=== PATIENT | male | born 1940 | race Caucasian/White ===

== ENCOUNTER 2021-06-21 13:31 | Inpatient (IN) ==
[~2021-06-21 13:31] MED LIST: Buffered Lidocaine 1% SYRIN 1 ml INTRADERM ONE; Lactated Ringers 1000 ml BAG 1,000 ML IV SCH
[2021-06-21] MEDS ORDERED: ceFAZolin 2 GM in NS PREMIX 2 GM/100 ML BAG IVPB ONE (13:39)
[2021-06-21] MEDS ORDERED: Lidocaine 1% MPF 5 ML VIAL ONE (14:00)
[2021-06-21] MEDS ORDERED: Midazolam 5 mg/5 ml VIAL 1 mg/ml 5 ml VIAL (5 mg) ONE (14:02)
[2021-06-21] MEDS ORDERED: ROPIVACAINE 5 MG/ML 30 ML BTL (0.5%) ONE (14:03)
[2021-06-21] MEDS ORDERED: Bupivacaine 0.5% SDV PF 30ML VIAL ONE (14:04)
[2021-06-21] MEDS ORDERED: Propofol 10 MG/ML 20 ML BTL ONE (14:08)
[2021-06-21] MEDS ORDERED: Dexamethasone IV 4 MG/ML VIAL 1 ml VIAL ONE (14:08)
[2021-06-21] MEDS ORDERED: fentaNYL 100 mcg/2 ml 50 MCG/ML VIAL ONE (14:08)
[2021-06-21] MEDS ORDERED: Ondansetron 4 mg VIAL 2 MG/ML 2 ml VIAL ONE (14:08)
[2021-06-21] MEDS ORDERED: Lidocaine 2% PF 5 ML VIAL ONE (14:08)
[2021-06-21 14:19] LABS: INR 1.22 (0.86-1.15)
[2021-06-21] MEDS ORDERED: Ondansetron 4 mg VIAL 2 MG/ML 2 ml VIAL IV PRN ×2 (14:45→15:39)
[2021-06-21] MEDS ORDERED: DiMENhydriNATE IV 50 mg/ml 1 ml VIAL IV PUSH PRN (14:45)
[2021-06-21] MEDS ORDERED: HYDROmorphone 1 MG/1 ML SYRINGE IV PRN (14:45)
[2021-06-21] MEDS ORDERED: Acetaminophen IV 1 GM/100ML 100 ML IV PRN (14:45)
[2021-06-21] MEDS ORDERED: Naloxone 0.4 mg VIAL 0.4 mg/ml 1 ml VIAL IV PRN (14:45)
[2021-06-21] MEDS ORDERED: fentaNYL 100 mcg/2 ml 50 MCG/ML VIAL IV PRN (14:45)
[2021-06-21] MEDS ORDERED: Phenylephrine 40 mcg/mL 10mL (400mcg) SYRINGE ONE (14:59)
[2021-06-21] MEDS ORDERED: Ondansetron ODT 4 mg TAB 4 MG TAB PO PRN (15:39)
[2021-06-21] MEDS ORDERED: Morphine 2 MG/ML SYRINGE IV PRN (15:39)
[2021-06-21] MEDS ORDERED: diPHENhydraMINE 25 mg TAB PO PRN (15:39)
[2021-06-21] MEDS ORDERED: Lactulose 30 ml UDC PO PRN (15:39)
[2021-06-21] MEDS ORDERED: diPHENhydraMINE IV 50 MG/ML 1 ml VIAL (BENADRYL) IV PRN (15:39)
[2021-06-21] MEDS ORDERED: Magnesium Hydroxide LIQ 30 ML UDC PO PRN (15:39)
[2021-06-21] MEDS ORDERED: Lactated Ringers 1000 ml BAG 1,000 ML IV SCH (16:00)
[2021-06-21] MEDS: Magnesium Hydroxide LIQ 30 ML UDC PO SCH (22:15)
[2021-06-21] MEDS: ceFAZolin 1 GM ADVAN 1 GM in NS 0.9% 50 ML 50 ML IVPB SCH (22:16)
[2021-06-22] MEDS: ceFAZolin 1 GM ADVAN 1 GM in NS 0.9% 50 ML 50 ML IVPB SCH ×2 (05:46→14:09)
[2021-06-22 08:48] LABS: ABS Lymphocytes 1.1 10^3/ul (1.0-4.8); ABS Monocytes 0.9 10^3/ul (0-0.8); ABS Neutrophils 10.8 10^3/ul (1.5-7.7); Hematocrit 38 % (42-52); Hemoglobin 12.8 g/dL (14.0-18.0); Lymphocyte % 8.4 %; Mean Corpuscular HGB Conc 34 g/dL (31-36); Mean Corpuscular Hemoglobin 31 pg (27-31); Mean Corpuscular Volume 92 fL (80-94); Mean Platelet Volume 9.6 fL (7.4-10.4); Platelet Count 196 10^3/uL (150-450); Red Blood Count 4.12 10^6 /uL (4.18-5.48); Red Cell Distribution Width 14 % (10-15); White Blood Count 12.8 10^3/uL (3.5-10.8)
[2021-06-22] MEDS: Aspirin EC 81 mg TAB.EC (enteric coated) PO SCH (08:54)
[2021-06-22] MEDS: Magnesium Hydroxide LIQ 30 ML UDC PO SCH ×2 (08:55→21:43)
[2021-06-22] MEDS: Vitamin THERAPEUTIC TAB PO SCH (08:55)
[2021-06-22] MEDS: Isosorbide Mononit ER 60mg TAB PO SCH (08:55)
[2021-06-22 09:04] LABS: Calcium 8.4 mg/dL (8.6-10.3); EGFR African American 91.2 (>60); EGFR Non-African American 75.4 (>60); Potassium 4.1 mmol/L (3.5-5.0)
[2021-06-23] MEDS: Aspirin EC 81 mg TAB.EC (enteric coated) PO SCH (09:03)
[2021-06-23] MEDS: Isosorbide Mononit ER 60mg TAB PO SCH (09:03)
[2021-06-23] MEDS: Vitamin THERAPEUTIC TAB PO SCH (09:03)
[2021-06-23] MEDS: Magnesium Hydroxide LIQ 30 ML UDC PO SCH ×2 (09:04→20:50)
[2021-06-24] MEDS: Magnesium Hydroxide LIQ 30 ML UDC PO SCH (08:14)
[2021-06-24] MEDS: Vitamin THERAPEUTIC TAB PO SCH (09:10)
[2021-06-24] MEDS: Aspirin EC 81 mg TAB.EC (enteric coated) PO SCH (09:10)
[2021-06-24] MEDS: Isosorbide Mononit ER 60mg TAB PO SCH (09:10)
[2021-06-25] MEDS: Aspirin EC 81 mg TAB.EC (enteric coated) PO SCH (10:35)
[2021-06-25] MEDS: Isosorbide Mononit ER 60mg TAB PO SCH (10:35)
[2021-06-25] MEDS: Vitamin THERAPEUTIC TAB PO SCH (10:36)
[2021-06-25 11:10] VITALS: BP 119/73
== END 2021-06-25 16:00 | disposition home or self-care (01) | DRG 494 ==
LOC: AA 13:31 → SSU 17:02
PROVIDERS: ADMIT Orthopaedic Surgery; ATTEND Orthopaedic Surgery